=== PATIENT | male | born 1975 | race Caucasian/White ===

== ENCOUNTER 2016-12-26 12:30 | Emergency (ER) | payer MEDICAID, MEDICARE ==
[~2016-12-26] VITALS: Ht 182.9 cm; Wt 77.1 kg
[~2016-12-26 12:30] MED LIST: ASPI-983 PO; ATOR80TA76 PO; ISOS30TA3 PO; METO-333 PO; OMG1KC PO; TICA90TA PO
--- OUTSIDE RECORDS SUMMARY | 2016-12-26 12:39 | XMS REPORT | Continuity of Care Document ---
Author Author [facility] Address Unknown Phone Unavailable Allergies Active Description Code Type Severity Reaction Onset Reported/Identified Relationship to Patient Clinical Status Yes No Known Drug Allergies [id number] Drug Allergy Unknown N/ A 07/25/2015 Medications Problems Date Dx Coded Attending Type Code Diagnosis Diagnosed By 05/19/2014 ROMAN DIA APRN 682.9 CELLULITIS AND ABSCESS OF UNSPECIFIED SITES 05/19/2014 ROMAN DIA APRN 682.9 CELLULITIS AND ABSCESS OF UNSPECIFIED SITES 06/09/2014 ROMAN DIA APRN 706.2 SEBACEOUS CYST 07/27/2015 LIYA BLACK MD Ot E78.5 HYPERLIPIDEMIA, UNSPECIFIED 07/27/2015 LIYA BLACK MD Ot F17.210 NICOTINE DEPENDENCE, CIGARETTES, UNCOMPL 07/27/2015 LIYA BLACK MD Ot I10 ESSENTIAL (PRIMARY) HYPERTENSION 07/27/2015 LIYA BLACK MD Ot 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 07/27/2015 LIYA BLACK MD Ot I25.10 ATHSCL HEART DISEASE OF [place] CORONARY 07/27/2015 LIYA BLACK MD Ot 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 Visit Date/Time Discharge Status Pt. Type Provider Facility Loc./Unit Complaint [id number] 06/09/2014 09:05:00 06/09/2014 23: 59:59 CLS Outpatient ROMAN DIA APRN [id number] 05/19/2014 09:17:00 05/19/2014 23: 59:59 CLS Outpatient ROMAN DIA APRN
[2016-12-26 13:00] VITALS: BP 0/0
[2016-12-26 13:06] LABS: BASOPHILS # (AUTO) 0.1 10^3/uL (0.0-0.1); BASOPHILS % (AUTO) 1 % (0-10); EOSINOPHILS # (AUTO) 0.2 10^3/uL (0.0-0.3); EOSINOPHILS % (AUTO) 1 % (0-10); LYMPHOCYTES # (AUTO) 6.9 X 10^3 (1.0-4.0); LYMPHOCYTES % (AUTO) 50 % (12-44); MEAN CORPUSCULAR HEMOGLOBIN 33 PG (25-34); MEAN CORPUSCULAR HGB CONC 32 G/DL (32-36); MEAN CORPUSCULAR VOLUME 101 FL (80-99); MEAN PLATELET VOLUME 11.8 FL (7.4-10.4); MONOCYTES # (AUTO) 0.7 X 10^3 (0.0-1.0); MONOCYTES % (AUTO) 5 % (0-12); NEUTROPHILS # (AUTO) 5.9 X 10^3 (1.8-7.8); NEUTROPHILS % (AUTO) 43 % (42-75); PLATELET COUNT 79 10^3/uL (130-400); RED BLOOD COUNT 4.51 10^6/uL (4.35-5.85); RED CELL DISTRIBUTION WIDTH 13.7 % (10.0-14.5); WHITE BLOOD COUNT 13.7 10^3/uL (4.3-11.0)
[2016-12-26 13:06] LABS: BILIRUBIN,URINE NEGATIVE (NEGATIVE); KETONES,URINE 1+ (NEGATIVE); LEUKOCYTE ESTERASE ,URINE 2+ (NEGATIVE); NITRITE,URINE NEGATIVE (NEGATIVE); PH,URINE 7 (5-9); PROTEIN,URINE 3+ (NEGATIVE); UROBILINOGEN,URINE NORMAL (NORMAL)
[2016-12-26 13:25] LABS: ALANINE AMINOTRANSFERASE 143 U/L (0-55); ALBUMIN 3.2 GM/DL (3.2-4.5); ANION GAP 19 MMOL/L (5-14); ASPARTATE AMINO TRANSFERASE 110 U/L (5-34); BILIRUBIN,TOTAL 0.2 MG/DL (0.1-1.0); BLOOD UREA NITROGEN 10 MG/DL (7-18); BUN/CREATININE RATIO 8; CALCIUM 8.6 MG/DL (8.5-10.1); CHLORIDE 110 MMOL/L (98-107); GFR ESTIMATED > 60; HEMOLYSIS 109 (-100-29); LIPEMIA 12 (-100-49); POTASSIUM 4.3 MMOL/L (3.6-5.0); SODIUM 139 MMOL/L (135-145); TOTAL PROTEIN 5.4 GM/DL (6.4-8.2)
[2016-12-26 13:30] LABS: GLUCOSE 434 MG/DL (70-105); MAGNESIUM 7.1 MG/DL (1.8-2.4)
[2016-12-26 13:31] LABS: CARBON DIOXIDE 10 MMOL/L (21-32)
[2016-12-26 13:32] LABS: TROPONIN I < 0.30 NG/ML (<0.30)
--- NOTE | 2016-12-26 13:33 | ED CPR ---
HPI-CPR General Chief Complaint: Code Blue Stated Complaint: CODE BLUE Source of Information: EMS, Police Exam Limitations: Other (unresponsive CPR in progress) History of Present Illness Time Seen by Provider: 12:30 Initial Comments Here by EMS with report of unresponsive with CPR in progress. Apparently the patient was noted to be sitting on the side of the road and then went unresponsive. EMS was summoned. Initial mortgage loan officer on the scene noted patient to be pulseless. Fire arrived at the same time and initiated CPR. On EMS arrival, patient was in V. fib and was pulseless. EMS did establish IO and continued with CPR. Ultimately the patient had V. fib with 3 spontaneous return of circulation after shock and epinephrine. Patient did receive 5 shocks and 4 mg of epinephrine IV during the code and patient was intubated by EMS. Good color change was noted by EMS with bilateral breath sounds. Patient had bilateral breath sounds with bagging on arrival. End-tidal CO2 by EMS was 16. CPR continues on arrival. Initial Complaints: Found Unresponsive Witnessed Arrest: No Bystander CPR: No Paramedics Initial Findings: Agonal Respirations, No Pulse, Unresponsive, V-FIB Pre Hospital Treatment: Bag Valve Mask, Defibrillation, Intubation, Oxygen, IV Fluids, Epinephrine (mg) (5) Allergies and Home Medications Allergies Coded Allergies: No Known Drug Allergies (Unverified , 07/25/15) Home Medications Aspirin 81 Mg Tablet.dr, 81 MG PO DAILY, #100 Ref 4 Prescribed by: LIYA BLACK on 07/27/15 1449 Atorvastatin Calcium 80 Mg Tablet, 80 MG PO HS, #30 Ref 3 Prescribed by: LIYA BLACK on 07/27/15 1449 Isosorbide Mononitrate 30 Mg Tab.er.24h, 30 MG PO DAILY, #30 Ref 4 Prescribed by: LIAY BLACK on 07/27/15 1449 Metoprolol Tartrate 25 Mg Tablet, 12.5 MG PO BID, #60 Ref 3 Prescribed by: LIYA BLACK on 07/27/15 1449 [place] 3 Polyunsat Fatty Acids 1,000 Mg Cap, 1,000 MG PO BID WITH MEALS, #100 Ref 3 Prescribed by: LIYA BLACK on 07/27/15 1449 Ticagrelor 90 Mg Tablet, 90 MG PO BID, #60 Ref 6 Prescribed by: LIYA BLACK on 07/27/15 1449 Review of Systems Constitutional: see HPI Other Comments Unable to complete review of systems due to clinical condition and CPR in progress. Past Ruoedyf-Bpmuap-Njtnlc Hx Surgeries HX Surgeries: Yes Respiratory Hx Respiratory Disorders: No Cardiovascular Hx Cardiac Disorders: No Neurological Hx Neurological Disorders: No Reproductive System Hx Reproductive Disorders: No Sexually Transmitted Disease: No Genitourinary Hx Genitourinary Disorders: No Gastrointestinal Hx Gastrointestinal Disorders: No Musculoskeletal Hx Musculoskeletal Disorders: No Endocrine Hx Endocrine Disorders: No HEENT HX ENT Disorders: No Cancer Hx Cancer: No Psychosocial Hx Psychiatric Problems: Yes Behavioral Health Disorders: Sleep Difficulties Integumentary HX Skin/Integumentary Disorder: No Blood Transfusions Hx Blood Disorders: No Family Medical History Other History of her records. Patient unable to give history due to clinical condition and CPR in progress. Physical Exam Vital Signs Vital Sign - Last 12Hours 12/26/16 12:30 O2 Delivery Ambu-Bag Capillary Refill : General Appearance: Other (unresponsive with CPR in progress) HEENT: Other (pupils fixed and dilated) Neck: Supple Respiratory: Other (bilateral coarse breath sounds with bagging via ET tube.) Cardiovascular: Other (pulseless) Gastrointestinal: Other (no sounds heard with bagging over epigastrium.) Neurologic/Psychiatric: Other (unresponsive with CPR in progress) Skin: Cool, Pallor Focused Exam Lactic Acid Level Laboratory Tests Test 12/26/16 12:50 Tube Size: 8.00 Progress/Results/Core Measures Results/Orders Lab Results Laboratory Tests Test 12/26/16 12:48 12/26/16 12:50 12/26/16 12:54 Range/Units White Blood Count 13.7 H 4.3-11.0 10^3/uL Red Blood Count 4.51 4.35-5.85 10^6/uL Hemoglobin 14.8 13.3-17.7 G/DL Hematocrit 46 40-54 % Mean Corpuscular Volume 101 H 80-99 FL Mean Corpuscular Hemoglobin 33 25-34 PG Mean Corpuscular Hemoglobin Concent 32 32-36 G/DL Red Cell Distribution Width 13.7 10.0-14.5 % Platelet Count 79 L 130-400 10^3/uL Mean Platelet Volume 11.8 H 7.4-10.4 FL Neutrophils (%) (Auto) 43 42-75 % Lymphocytes (%) (Auto) 50 H 12-44 % Monocytes (%) (Auto) 5 0-12 % Eosinophils (%) (Auto) 1 0-10 % Basophils (%) (Auto) 1 0-10 % Neutrophils # (Auto) 5.9 1.8-7.8 X 10^3 Lymphocytes # (Auto) 6.9 H 1.0-4.0 X 10^3 Monocytes # (Auto) 0.7 0.0-1.0 X 10^3 Eosinophils # (Auto) 0.2 0.0-0.3 10^3/uL Basophils # (Auto) 0.1 0.0-0.1 10^3/uL Sodium Level 139 135-145 MMOL/L Potassium Level 4.3 3.6-5.0 MMOL/L Chloride Level 110 H 98-107 MMOL/L Carbon Dioxide Level 10 L 21-32 MMOL/L Anion Gap 19 H 5-14 MMOL/L Blood Urea Nitrogen 10 7-18 MG/DL Creatinine 1.20 0.60-1.30 MG/DL Estimat Glomerular Filtration Rate > 60 BUN/Creatinine Ratio 8 Glucose Level 434 *H 70-105 MG/DL Calcium Level 8.6 8.5-10.1 MG/DL Magnesium Level 7.1 *H 1.8-2.4 MG/DL Total Bilirubin 0.2 0.1-1.0 MG/DL Aspartate Amino Transf (AST/SGOT) 110 H 5-34 U/L Alanine Aminotransferase (ALT/SGPT) 143 H 0-55 U/L Alkaline Phosphatase 82 40-136 U/L Troponin I < 0.30 <0.30 NG/ML Total Protein 5.4 L 6.4-8.2 GM/DL Albumin 3.2 3.2-4.5 GM/DL Urine Color YELLOW Urine Clarity VERY CLOUDY H Urine pH 7 5-9 Urine Specific [place] 1.015 L 1.016-1.022 Urine Protein 3+ H NEGATIVE Urine Glucose (UA) NEGATIVE NEGATIVE Urine Ketones 1+ H NEGATIVE Urine Nitrite NEGATIVE NEGATIVE Urine Bilirubin NEGATIVE NEGATIVE Urine Urobilinogen NORMAL NORMAL MG/DL Urine Leukocyte Esterase 2+ H NEGATIVE Urine RBC (Auto) 2+ H NEGATIVE Urine RBC 2-5 H /HPF Urine WBC 5-10 H /HPF Urine Crystals NONE /LPF Urine Bacteria FEW H /HPF Urine Casts NONE /LPF Urine Mucus NEGATIVE /LPF Urine Other LG SPERM H /HPF Urine Culture Indicated NO Urine Opiates Screen NEGATIVE NEGATIVE Urine Oxycodone Screen NEGATIVE NEGATIVE Urine Methadone Screen NEGATIVE NEGATIVE Urine Propoxyphene Screen NEGATIVE NEGATIVE Urine Barbiturates Screen NEGATIVE NEGATIVE Ur Tricyclic Antidepressants Screen NEGATIVE NEGATIVE Urine Phencyclidine Screen NEGATIVE NEGATIVE Urine Amphetamines Screen NEGATIVE NEGATIVE Urine Methamphetamines Screen NEGATIVE NEGATIVE Urine Benzodiazepines Screen NEGATIVE NEGATIVE Urine Cocaine Screen POSITIVE H NEGATIVE Urine Cannabinoids Screen POSITIVE H NEGATIVE Glucometer 373 H 70-110 MG/DL My Orders Orders - CALLY LOPES MD Cbc With Automated Diff (12/26/16 12:56) Comprehensive Metabolic Panel (12/26/16 12:56) Troponin I (12/26/16 12:56) Magnesium (12/26/16 12:56) Lactic Acid Analyzer (12/26/16 12:56) Arterial Blood Gas (12/26/16 12:56) Ua Culture If Indicated (12/26/16 12:56) Drug Screen Stat (Urine) (12/26/16 12:56) Manual Differential (12/26/16 12:48) Vital Signs/I&O Vital Sign - Last 12Hours 12/26/16 12/26/16 12:30 13:00 B/P (MAP) O2 Delivery Ambu-Bag Point of Care Testing Finger Stick Blood Glucose: 373 Blood Glucose Action Taken: DR BRICE Progress Note : Progress Note Seen and evaluated on arrival by EMS. CPR in progress. On arrival, patient in V. fib. CPR resumed and then shock initiated. Epinephrine 1 mg IV was given as well as lidocaine 100 mg IV. Patient remains in V. fib and shocked again was initiated. A. fib had torsades features. Magnesium IV given as well as epinephrine. Patient then converted to slow PA and CPR was continued. Epinephrine 1 mg IV was given. Bicarbonate 1 amp was given. Patient remains in PEA and/or slow PA. Atropine 1 mg IV given for slow PA. CPR continued patient remains in PEA. Epinephrine 1 mg IV given and CPR continued. Fluids are running wide open. Slow PA continues and epinephrine 1 mg IV was given. Finger Stick blood sugar noted to be 373 and CPR stopped while ultrasound will of the heart was done. This showed minimal cardiac activity. CPR continued. One amp of calcium was given as well as repeat epinephrine. End-tidal CO2 noted to be 10 and would elevate at 215 briefly with sustained CPR. CPR stopped and patient noted to be in PEA. We continued CPR and end-tidal noted to be 9-12. 1300: Asystole noted on monitor with no agonal beats. Code stopped. Patient down time greater than 1 hour at this time without return of spontaneous circulation and remains in asystole. Time of 1300. Saxophone Teacher notified. Code labs pending. 1329: I did discuss the case with Dr. Dao, delinquent account clerk on-call. They will follow. Police to notify next of kin. Departure Impression Impression: Primary Impression: Cardiopulmonary arrest Disposition: 20 Condition: CALLY LOPES MD Dec 26, 2016 13:33
[2016-12-26 13:51] LABS: BAND NEUTROPHILS 6 %; BASOPHILS % (MANUAL) 0 %; EOSINOPHILS % (MANUAL) 3 %; LYMPHOCYTES % (MANUAL) 57 %; MYELOCYTES % 2 %; NEUTROPHILS % (MANUAL) 28 %
[2016-12-26] MEDS ORDERED: EPINEPHrine 0.1 MG/ML 10 ML (HOSPIRA) SYR IV ONE (14:53)
[2016-12-26] MEDS ORDERED: MAGNESIUM SULFATE IV ONE (14:53)
[2016-12-26] MEDS ORDERED: ATROPINE INJECTION 1 MG/10 ML SYR (ABBOTT) INJ ONE (14:53)
[2016-12-26] MEDS ORDERED: LIDOCAINE BOLUS 100 MG/5 ML (IMS) SYR IV ONE (14:53)
[2016-12-26] MEDS ORDERED: SODIUM BICARB 8.4% 50 MEQ/50 ML (ABBOTT) SYR INJ ONE (14:53)
[2016-12-26] MEDS ORDERED: CATHETER FLUSH 10 ML SYR IV ONE (14:53)
[2016-12-26] MEDS ORDERED: CALCIUM CHLORIDE 1 GM/10 ML (IMS) SYR IV ONE (14:53)
[2016-12-26] MEDS ORDERED: EPINEPHrine INJECTION 1 MG/ML AMP IV ONE (14:53)
== END 2016-12-26 16:30 | disposition expired ==
LOC: EDUNIT# 12:33 → ER 12:35
DX: I46.9 Cardiac arrest, cause unspecified (principal); Z79.82 Long term (current) use of aspirin
CPT/HCPCS: 36415; 36680; 51702; 80053; 80306; 81000; 82962; 83735; 84484; 85007; 85025; 85027; 93041; 99291